=== PATIENT | male | born 1960 | race Caucasian/White ===

== ENCOUNTER → 2021-06-30 | Outpatient (CLI) | payer OTHER ==
--- NOTE | 2021-07-01 03:52 | MR ---
EXAMINATION TYPE: MR knee RT wo/w con DATE OF EXAM: 06/30/2021 COMPARISON: None HISTORY: Right knee pain, hx 3 prior surgeries. CONTRAST: Standard multiplanar, multisequence MRI departmental protocol utilizing 9 mL intravenous Gadavist charanjit olinium contrast. Multiplanar multiecho imaging of the right knee without contrast. There is knee joint effusion. The anterior and posterior cruciate ligaments are intact. There is larg e horizontal defect in the posterior horn medial meniscus extending to the inferior surface. Lateral meniscus appears fairly normal. Collateral ligaments appear intact. There is no evidence of a fracture. There is minor spurring of th e femoral and tibial condyles. I see no focal bone destruction. IMPRESSION: Mild osteoarthritis. Large horizontal tear posterior horn of the medial meniscus. No evidence of liga mentous tear. Knee joint effusion consistent with some synovitis.
== END | disposition home or self-care (01) ==
LOC: RADMRIMAIN 17:31
PROVIDERS: ATTEND Nurse Practitioner Adult Health
DX: M17.11 Unilateral primary osteoarthritis, right knee (principal); M23.321 Other meniscus derangements, posterior horn of medial meniscus, right knee
CPT/HCPCS: 73723; A9585